=== PATIENT | male | born 1935 | race Caucasian/White ===

== ENCOUNTER 2016-11-28 21:55 | Observation (INO) | payer MEDICARE, BC ==
[~2016-11-28] VITALS: Ht 180.3 cm; Wt 71.9 kg
[~2016-11-28 21:55] MED LIST: ALFU1TAB10 PO; ASPI325T24 PO; CO Q100C9 PO; PRIN20TA2 PO; ROSU40 PO
[2016-11-28 21:59] VITALS: BP 207/91; PULSE 60; RESP 18; RESP 54; TEMP 97.8
[2016-11-28] MEDS ORDERED: ROSU10 PO (22:33)
[2016-11-28] MEDS ORDERED: COQ-50CA2 (22:33)
[2016-11-28] MEDS ORDERED: LEVO.05 PO (22:33)
[2016-11-28] MEDS ORDERED: ASPI81TA11 PO (22:33)
[2016-11-28] MEDS ORDERED: AMLO2.5T PO (22:33)
[2016-11-28] MEDS ORDERED: LISI-515 PO (22:33)
--- NOTE | 2016-11-28 22:41 | RADRPT ---
EXAM DATE/TIME: 11/28/2016 22:35 [facility] COMPARISON: No previous studies available for comparison. INDICATIONS : Chest pain. MEDICAL HISTORY : None. SURGICAL HISTORY : None. ENCOUNTER: Initial ACUITY: 1 day PAIN SCORE: 4/10 LOCATION: Bilateral chest FINDINGS: A single view of the chest demonstrates the lungs to be symmetrically aerated without evidence of mas s, infiltrate or effusion. The cardiomediastinal contours are unremarkable. Osseous structures are intact. CONCLUSION: No acute disease. Jj Painting MD on November 28, 2016 at 22:40 Board Certified Radiologist. This report was verified electronically.
[2016-11-28] MEDS ORDERED: SODIUM CHLORIDE 0.9% FLUSH 10 ML FLUSH IVF PRN (22:45)
--- NOTE | 2016-11-28 22:47 | RADRPT ---
EXAM DATE/TIME: 11/28/2016 22:35 [facility] COMPARISON: No previous studies available for comparison. INDICATIONS : Dizziness. RADIATION DOSE: 63.67 CTDIvol (mGy) MEDICAL HISTORY : Hypertension. SURGICAL HISTORY : None. ENCOUNTER: Initial ACUITY: 1 day PAIN SCALE: 0/10 LOCATION: cranial TECHNIQUE: Multiple contiguous axial images were obtained of the head. Using automated exposure control and adj ustment of the mA and/or kV according to patient size, radiation dose was kept as low as reasonably a chievable to obtain optimal diagnostic quality images. DICOM format image data is available electro nically for review and comparison. FINDINGS: CEREBRUM: The ventricles are normal for age. No evidence of midline shift, mass lesion, hemorrhage or acute in farction. No extra-axial fluid collections are seen. There is a small focal dural calcification martina g the left occipital lobe versus a small meningioma measuring 1 cm.. POSTERIOR FOSSA: The cerebellum and brainstem are intact. The 4th ventricle is midline. The cerebellopontine angle i s unremarkable. EXTRACRANIAL: The visualized portion of the orbits is intact. SKULL: The calvaria is intact. No evidence of skull fracture. CONCLUSION: 1. No acute intracranial pathology. 2. Small focal dural calcification measuring 1 cm versus meningioma along the left occipital lobe are a. Jj Painting MD on November 28, 2016 at 22:44 Board Certified Radiologist. This report was verified electronically.
--- NOTE | 2016-11-28 22:47 | PD ---
HPI Chief Complaint: Dizziness Time Seen by Provider: 22:31 Travel History International Travel<30 days: No Contact w/Intl Traveler<30days: No Traveled to known affect area: No History of Present Illness HPI 81-year-old male presents to the emergency department for complaint of dizziness and not feeling well 2-3 days. Patient states this evening dizziness seemed to be somewhat worse and became concerned that his blood pressure may be too high or that he may have a stroke since symptoms have persisted for so long. Patient does not note any new headache visual disturbance change in mentation facial droop change in speech upper or lower extremity numbness tingling or weakness or gait or balance disturbance; patient also denies any chest pain palpitations shortness of breath sweats nausea vomiting referred neck jaw back shoulder arm or abdominal pain. Patient has noticed urinary frequency. Patient states he jogs or walks daily and did child this morning and over the past 2 mornings. reports that he did seem a little bit unsteady today as far as dizziness so she held his hand while they jogged together. Does have history of CAD with previous cardiac catheterization and angioplasty with annual nuclear stress tests that have been normal and is scheduled to have his annual stress test next month. Patient also has history of hypertension and dyslipidemia but denies history of diabetes. Patient also has history of hypothyroidism. Patient's had no recent fever or chills. Patient reports that he's been under a lot of family related stress which his confirms. Pain 0/10. PFSH Past Medical History Narrative Medical CAD hypertension dyslipidemia hypothyroidism shingles herniorrhaphy cardiac catheterization with angioplasty no tobacco use no alcohol use; nursing notes reviewed Hx Anticoagulant Therapy: Yes (asa) Cardiovascular Problems: Yes High Cholesterol: Yes Diminished Hearing: No Genitourinary: Yes (PROSTRATE ENLARGED) Hypertension: Yes Immunizations Current: Yes ("SHINGLES" SHOT 2010) Past Surgical History Abdominal Surgery: Yes (HERNIA X 2) Appendectomy: Yes Tonsillectomy: Yes Social History Alcohol Use: No Tobacco Use: No Substance Use: No Allergies-Medications (Allergen,Severity, Reaction): Coded Allergies: codeine (Verified Adverse Reaction, Mild, Nausea/Vomiting, 11/28/16) Reported Meds & Prescriptions Reported Meds & Active Scripts Active Reported Lisinopril 20 Mg Tab 20 Mg PO DAILY Coq-10 (Coenzyme Q10 (Ubidecarenone)) 50 Mg Cap 100 Crestor (Rosuvastatin Calcium) 10 Mg Tab 10 Mg PO DAILY Amlodipine (Amlodipine Besylate) 2.5 Mg Tab 2.5 Mg PO DAILY Synthroid (Levothyroxine Sodium) 50 Mcg Tab 50 Mcg PO DAILY Aspirin EC (Aspirin) 81 Mg Tabdr 81 Mg PO DAILY Review of Systems Except as stated in HPI: all other systems reviewed are Neg General / Constitutional: No: Fever, Chills Eyes: No: Visual changes HENT: Positive: Lightheadedness, No: Headaches, Vertigo, Congestion, Neck Stiffness, Neck Pain Cardiovascular: No: Chest Pain or Discomfort, Palpitations, Diaphoresis, Syncope Respiratory: No: Shortness of Breath Gastrointestinal: No: Nausea, Vomiting, Abdominal Pain Genitourinary: Positive: Frequency, No: Flank Pain Musculoskeletal: No: Myalgias, Arthralgias Skin: No Rash Neurologic: Positive: Dizziness, No: Weakness, Syncope, Focal Abnormalities, Coordination Problem, Ataxia, Headache, Change in Mentation, Slurred Speech, Paresthesia, Incontinence, Sensory Disturbance Psychiatric: No: Anxiety, Depression Endocrine: No: Cold Intolerance Hematologic/Lymphatic: No: Easy Bruising Physical Exam Narrative GENERAL: Well-developed well-nourished male in no acute distress no respiratory distress; GCS 15; BP: 207/91 SKIN: Warm and dry. HEAD: Atraumatic. Normocephalic. EYES: Pupils equal and round. No scleral icterus. No injection or drainage. ENT: No nasal bleeding or discharge. Mucous membranes pink and moist. NECK: Trachea midline. No JVD. CARDIOVASCULAR: Regular rate and rhythm. RESPIRATORY: No accessory muscle use. Clear to auscultation. Breath sounds equal bilaterally. GASTROINTESTINAL: Abdomen soft, non-tender, nondistended. Hepatic and splenic margins not palpable. MUSCULOSKELETAL: Extremities without clubbing, cyanosis, or edema. No obvious deformities. NEUROLOGICAL: Awake and alert. No obvious cranial nerve deficits. Motor grossly within normal limits. Five out of 5 muscle strength in the arms and legs. No pronator drift. No limb ataxia. Sensory exam grossly intact. Normal speech. PSYCHIATRIC: Appropriate mood and affect; insight and judgment normal. Data Data Last Documented VS Vital Signs Date Time Temp Pulse Resp B/P (MAP) Pulse Ox O2 Delivery O2 Flow Rate FiO2 11/28/16 23:37 74 16 177/90 (119) 98 Room Air 11/28/16 21:59 97.8 Orders Orders Electrocardiogram (11/28/16 22:31) Complete Blood Count With Diff (11/28/16:31) Comprehensive Metabolic Panel (11/28/16:31) Magnesium (Mg) (11/28/16:31) Ckmb (Isoenzyme) Profile (11/28/16 22:31) Troponin I (11/28/16:31) Urinalysis - C+S If Indicated (11/28/16:31) Chest, Single Ap (11/28/16:31) Ct Brain W/O Iv Contrast(Rout) (11/28/16:31) Blood Glucose (11/28/16:) Ecg Monitoring (11/28/16:) Iv Access Insert/Monitor (11/28/16:31) Oximetry (11/28/16:31) Sodium Chloride 0.9% Flush (Ns Flush) (11/28/16 22:45) Orthostatic Vital Signs (11/28/16:31) Hydralazine Inj (Apresoline Inj) (11/28/16 23:15) CKMB (11/28/16 22:44) CKMB% (11/28/16 22:44) Admit Order (Ed Use Only) (11/28/16 23:44) Labs Laboratory Tests Test 11/28/16 22:44 11/28/16 23:17 White Blood Count 5.9 TH/MM3 Red Blood Count 4.43 MIL/MM3 Hemoglobin 12.7 GM/DL Hematocrit 38.3 % Mean Corpuscular Volume 86.5 FL Mean Corpuscular Hemoglobin 28.7 PG Mean Corpuscular Hemoglobin Concent 33.2 % Red Cell Distribution Width 12.8 % Platelet Count 178 TH/MM3 Mean Platelet Volume 8.9 FL Neutrophils (%) (Auto) 52.1 % Lymphocytes (%) (Auto) 32.9 % Monocytes (%) (Auto) 9.7 % Eosinophils (%) (Auto) 4.5 % Basophils (%) (Auto) 0.8 % Neutrophils # (Auto) 3.0 TH/MM3 Lymphocytes # (Auto) 1.9 TH/MM3 Monocytes # (Auto) 0.6 TH/MM3 Eosinophils # (Auto) 0.3 TH/MM3 Basophils # (Auto) 0.0 TH/MM3 CBC Comment DIFF FINAL Differential Comment Blood Urea Nitrogen 20 MG/DL Creatinine 0.82 MG/DL Random Glucose 127 MG/DL Total Protein 7.1 GM/DL Albumin 3.6 GM/DL Calcium Level 8.5 MG/DL Magnesium Level 2.2 MG/DL Alkaline Phosphatase 47 U/L Aspartate Amino Transf (AST/SGOT) 21 U/L Alanine Aminotransferase (ALT/SGPT) 31 U/L Total Bilirubin 0.4 MG/DL Sodium Level 140 MEQ/L Potassium Level 3.5 MEQ/L Chloride Level 104 MEQ/L Carbon Dioxide Level 28.2 MEQ/L Anion Gap 8 MEQ/L Estimat Glomerular Filtration Rate 90 ML/MIN Total Creatine Kinase 160 U/L Creatine Kinase MB 8.7 NG/ML Troponin I LESS THAN 0.02 NG/ML Urine Color YELLOW Urine Turbidity CLEAR Urine pH 7.0 Urine Specific [place] 1.007 Urine Protein NEG mg/dL Urine Glucose (UA) NEG mg/dL Urine Ketones NEG mg/dL Urine Occult Blood NEG Urine Nitrite NEG Urine Bilirubin NEG Urine Leukocyte Esterase NEG Urine RBC 0-2 /hpf Urine WBC 0-2 /hpf Urine Squamous Epithelial Cells 0-5 /hpf Urine Bacteria NONE /hpf Microscopic Urinalysis Comment CULT NOT INDICATED MDM Medical Decision Making Medical Screen Exam Complete: Yes Emergency Medical Condition: Yes Medical Record Reviewed: Yes (review of medical records indicates patient with sinus bradycardia by EKG since 2010) Interpretation(s) CT brain w/o contrast: CONCLUSION: 1. No acute intracranial pathology. 2. Small focal dural calcification measuring 1 cm versus meningioma along the left occipital lobe area. Jj Painting MD on November 28, 2016 at 22:44 Board Certified Radiologist. This report was verified electronically. Last Impressions Chest X-Ray 11/28/161 Signed Impressions: Service Date/Time: Monday, November 28, 2016 22:35 - CONCLUSION: No acute disease. Jj Painting MD EKG: Sinus bradycardia rate [address] elevation or injury pattern or ectopy noted CBC & BMP Diagram 11/28/16 22:44 Total Protein 7.1, Albumin 3.6, Calcium Level 8.5, Magnesium Level 2.2, Alkaline Phosphatase 47, Aspartate Amino Transf (AST/SGOT) 21, Alanine Aminotransferase (ALT/SGPT) 31, Total Bilirubin 0.4 Troponin I: less than 0.02, not elevated CK: 160, not elevated; MB: 8.7 elevated; MB% 5.4%, elevated Differential Diagnosis Dizziness, near syncope, uncontrolled hypertension, ACS, arrhythmia, anemia, UTI , sepsis, CVA, TIA Narrative Course Patient placed on parts sales manager and pulse oximetry; IV access obtained; specimens collected and sent for resulting; EKG ordered along with orthostatic vital signs and CT brain noncontrast Review of medical records indicates patient has history of sinus bradycardia and underwent cardiac catheterization February 2010 that showed severe single vessel coronary disease that was successfully opened using balloon angioplasty. CBC with automated differential metabolic panel and urinalysis values found to be normal range; EKG sinus bradycardia without acute ST elevation or injury pattern; troponin I less than 0.02, not elevated CK total is 160 however CK-MB is elevated 8.7 with an MB percent elevated at 5.4%. CT brain noncontrast reveals no acute intercranial process however as an incidental finding per reading radiologist area of hyperdensity consistent with calcification versus meningioma identified 1 cm in size recommends outpatient follow-up Patient received hydralazine 10 mg IV with blood pressure 177/90 Patient with recurrent elevation of blood pressure therefore Nitropaste 1 inch to chest wall was applied Patient's case was discussed with his primary care provider Dr. González Martinez who recommends observation admission for ongoing management of blood pressure and for serial cardiac enzymes. Patient informed of recommendation for observation admission and is agreeable to this plan. Patient provider changed to [facility] MD per Dr Martinez Critical Care Narrative Aggregate critical care time was 30 minutes. Time to perform other separately billable procedures was not included in the critical care time. My time did not include minutes spent treating any other patients simultaneously or on activities that did not directly contribute to the patient's treatment. The services I provided to this patient were to treat and/or prevent clinically significant deterioration that could result in: Hypertensive crisis, stroke, ICH , [place], arrhythmia, I provided critical care services requiring my management, as noted below: Chart data review, documentation time, medication orders and management, vital sign assessments/reviewing monitor data, ordering and reviewing lab tests, ordering and interpreting/reviewing x-rays and diagnostic studies, care of the patient and discussion of the patient with the admitting physicians. Physician Communication Physician Communication discussed with Dr Martinez--admit OBS to his service [facility] --> change to [facility] service; discussed with Dr Medel who graciously accepts the patient Diagnosis Primary Impression: Hypertension Qualified Codes: I10 - Essential (primary) hypertension Additional Impressions: Elevated CK-MB level Dizziness Admitting Information Admitting Physician Requests: Observation Michela Carlos MD Nov 28, 2016 22:47
[2016-11-28 22:57] LABS: BASOPHIL % 0.8 % (0.0-2.0); EOSINOPHIL # 0.3 TH/MM3 (0-0.4); EOSINOPHIL % 4.5 % (0.0-4.0); HEMATOCRIT 38.3 % (39.0-51.0); HEMO FLAGS DIFF FINAL; LYMPH % 32.9 % (9.0-44.0); LYMPHOCYTE # 1.9 TH/MM3 (1.0-4.8); MEAN CELL VOLUME 86.5 FL (80.0-100.0); MEAN CORPUSCULAR HEMOGLOBIN 28.7 PG (27.0-34.0); MEAN CORPUSCULAR HGB CONC 33.2 % (32.0-36.0); MONO % 9.7 % (0.0-8.0); NEUT % 52.1 % (16.0-70.0); PLATELET COUNT 178 TH/MM3 (150-450); RED BLOOD COUNT 4.43 MIL/MM3 (4.50-5.90); RED CELL DISTRIBUTION WIDTH 12.8 % (11.6-17.2); WHITE BLOOD COUNT 5.9 TH/MM3 (4.0-11.0)
[2016-11-28 22:58] VITALS: BP 205/104; PULSE 54; RESP 16; O2SAT 97
[2016-11-28 23:05] LABS: CHLORIDE 104 MEQ/L (98-107); POTASSIUM 3.5 MEQ/L (3.5-5.1); SODIUM (NA) 140 MEQ/L (136-145)
[2016-11-28 23:06] VITALS: BP_SYST 197; BP_SYST 214; BP_SYST 252; BP_DIAS 100; BP_DIAS 129; BP_DIAS 95
[2016-11-28 23:10] LABS: ANION GAP 8 MEQ/L (5-15); BICARBONATE 28.2 MEQ/L (21.0-32.0); BLOOD UREA NITROGEN 20 MG/DL (7-18); MAGNESIUM 2.2 MG/DL (1.5-2.5)
[2016-11-28 23:13] LABS: ALT (GPT) 31 U/L (12-78); AST (GOT) 21 U/L (15-37); GLOMERULAR FILTRATION RATE 90 ML/MIN (>89)
[2016-11-28 23:15] LABS: TOTAL BILIRUBIN ADULT 0.4 MG/DL (0.2-1.0)
[2016-11-28] MEDS ORDERED: hydrALAZINE HCL 20 MG/ML VIAL IV PUSH ONE (23:15)
[2016-11-28 23:16] LABS: ALKALINE PHOSPHATASE 47 U/L (45-117); CREATINE KINASE 160 U/L (39-308)
[2016-11-28 23:26] LABS: BLOOD, URINE NEG (NEG); GLUCOSE,URINE NEG (NEG); KETONE, URINE NEG (NEG); NITRITE,URINE NEG (NEG)
[2016-11-28 23:28] LABS: CKMB 8.7 NG/ML (0.5-3.6)
[2016-11-28 23:34] LABS: COMMENT (UR) CULT NOT INDICATED; CULTURE IF INDICATED CULT NOT INDICATED; RBC, URINE 0-2 /hpf (0-3); SQUAMOUS EPITHELIAL CELL URINE 0-5 /hpf (0-5); URINE COLOR YELLOW (YELLW/STRAW); WBC, URINE 0-2 /hpf (0-5)
[2016-11-28 23:37] VITALS: BP 177/90; PULSE 74; RESP 16; O2SAT 98
[2016-11-29] VITALS (11 sets, daily range): BP systolic 100–205; BP diastolic 66–142; PULSE 55–83; RESP 15–18; TEMP 97.2–98; O2SAT 95–99
[2016-11-29] MEDS ORDERED: NITROGLYCERIN 2% OINT 1 GM PACKET TOPICAL ONE
[2016-11-29] MEDS ORDERED: NALOXONE HCL 0.4 MG/ML AMP IV PUSH PRN (00:15)
[2016-11-29] MEDS ORDERED: SODIUM CHLORIDE 0.9% FLUSH 10 ML FLUSH IV FLUSH PRN (00:15)
[2016-11-29] MEDS ORDERED: ENALAPRILAT 2.5 MG/2 ML VIAL IV PUSH PRN (00:30)
[2016-11-29] MEDS ORDERED: hydrALAZINE HCL 20 MG/ML VIAL IV PUSH ONE (01:15)
[2016-11-29 05:06] LABS: CREATINE KINASE 152 U/L (39-308)
[2016-11-29] MEDS: SODIUM CHLORIDE 0.9% FLUSH 10 ML FLUSH IV FLUSH SCH ×2 (08:35→20:50)
[2016-11-29] MEDS ORDERED: LISINOPRIL 20 MG TAB PO SCH ×2 (09:00→21:00)
[2016-11-29] MEDS ORDERED: amLODIPine BESYLATE 5 MG TAB PO SCH (09:00)
--- NOTE | 2016-11-29 11:20 | HHI.HP ---
HPI Service [facility] Primary Care Physician González Martinez MD Admission Diagnosis HTN urgency; dizziness; elevated MB% Diagnoses: (1) Hypertensive emergency Diagnosis: Principal (2) Dizziness Diagnosis: Principal Chief Complaint: Dizziness, elevated blood pressure Travel History International Travel<30 Days: No Contact w/Intl Traveler <30 Da: No Traveled to Known Affected Are: No History of Present Illness Written by Carlos Perea, acting as scribe for Dr. Mckeon on 11/29/16 at 11:11. 81-year-old male with known history of hypertension, hyperlipidemia, coronary artery disease, hypothyroidism who presented to hospital because of dizziness, elevated blood pressure. Patient had been in his normal state of health until he went to his bending roll hand and was told that he had macular degeneration. Since then he has been having increased stress in over the last 2 days he has been experiencing dizziness that he describes as a wobbliness whenever he stands up. He is doing his normal routine wear him and his would jog on a daily basis. However yesterday he had his dizziness sensation felt flush. He checked his blood pressure in was elevated and he thought he may be at risk for having a stroke so his drove him to the hospital for evaluation. Patient had workup done with CT scan of the head which was unremarkable for any acute abnormality, patient's initial blood pressure of 207/ 91. Patient was given Apresoline and Nitropaste with improvement of his blood pressure. At the present time patient blood pressure is 146/78. He is no longer experiencing any dizziness. Patient denied any other symptoms to include no chest pain, nausea, vomiting, room spinning, unilateral weakness, shortness of breath. Review of Systems Constitutional: COMPLAINS OF: Dizziness Except as stated in HPI: all other systems reviewed are Neg Past Family Social History Past Medical History Hypertension Hyperlipidemia Hypothyroidism Coronary artery disease Enlarged prostate History of shingles Past Surgical History Hernia repair Tonsillectomy Cardiac catheterization with angioplasty Reported Medications Reported Meds & Active Scripts Active Reported Lisinopril 20 Mg Tab 20 Mg PO HS Coq-10 (Coenzyme Q10 (Ubidecarenone)) 50 Mg Cap 100 Crestor (Rosuvastatin Calcium) 10 Mg Tab 10 Mg PO DAILY Amlodipine (Amlodipine Besylate) 2.5 Mg Tab 2.5 Mg PO HS Synthroid (Levothyroxine Sodium) 50 Mcg Tab 50 Mcg PO DAILY Aspirin EC (Aspirin) 81 Mg Tabdr 81 Mg PO HS Allergies: Coded Allergies: codeine (Verified Adverse Reaction, Mild, Nausea/Vomiting, 11/28/16) Family History Reviewed is significant for mother in her mid 80s with breast cancer and hypertension, father in his mid 80s with hypertension and stroke Social History Patient denies any tobacco, alcohol or illicit drugs Physical Exam Vital Signs Vital Signs Date Time Temp Pulse Resp B/P (MAP) Pulse Ox O2 Delivery O2 Flow Rate FiO2 11/29/16 07:16 99 Room Air 11/29/16 07:09 98.0 66 18 146/78 (100) 99 Room Air 11/29/16 04:36 74 15 138/72 (94) 96 Room Air 11/29/16 03:18 73 15 154/80 (104) 95 Room Air 11/29/16 01:54 79 15 158/85 (109) 97 Room Air 11/29/16 01:08 83 190/100 (130) 11/29/16 00:36 98.0 73 16 205/107 (139) 99 Room Air 11/29/16 00:18 70 16 195/102 (133) 99 Room Air 11/28/16 23:37 74 16 177/90 (119) 98 Room Air 11/28/16 23:06 62 197/95 (129) 56 214/100 (138) 87 252/129 (170) 11/28/16 22:58 16 97 Room Air 11/28/16 22:58 Room Air 11/28/16 22:58 54 16 205/104 (137) 97 Room Air 11/28/16 21:59 97.8 60 18 207/91 (129) Physical Exam GENERAL: Well-developed, well-nourished, in no acute distress. alert and orientated HEENT: Head is normocephalic without any lesions or masses noted. Facial features are symmetric. Eyes: Pupils equal round reactive to light. Extraocular muscles are intact. Conjunctivae were clear. Oropharyngeal: Pharynx without any erythema edema. Tongue is midline without deviation. Buccal mucosa is moist without any masses or lesions NECK: Supple without any masses. Trachea midline no deviation. No JVD, no bruits are appreciated CARDIAC: Regular rhythm, regular rate. S1/S2 are heard. No murmurs gallops or rubs. LUNGS: Clear to auscultation bilaterally. No wheeze, rhonchi or rales. No use of accessory muscles on inspiration or expiration. ABDOMEN: Soft, nontender. Nondistended. Bowel sounds heard in all 4 quadrants. No organomegaly or masses. Negative rebound, negative guarding EXTREMITIES: No edema, pulses are equal bilaterally. No cyanosis or clubbing NEUROLOGY: Mood and affect appear appropriate. Cranial nerves II through XII grossly intact. Muscle strength 5/5 in upper and lower extremities bilaterally. Deep tendon reflexes are 2+ in upper and lower extremities bilaterally. Laboratory Laboratory Tests Test 11/28/16 22:44 11/28/16 23:17 11/29/16 04:40 11/29/16 10:51 White Blood Count 5.9 Red Blood Count 4.43 Hemoglobin 12.7 Hematocrit 38.3 Mean Corpuscular Volume 86.5 Mean Corpuscular Hemoglobin 28.7 Mean Corpuscular Hemoglobin Concent 33.2 Red Cell Distribution Width 12.8 Platelet Count 178 Mean Platelet Volume 8.9 Neutrophils (%) (Auto) 52.1 Lymphocytes (%) (Auto) 32.9 Monocytes (%) (Auto) 9.7 Eosinophils (%) (Auto) 4.5 Basophils (%) (Auto) 0.8 Neutrophils # (Auto) 3.0 Lymphocytes # (Auto) 1.9 Monocytes # (Auto) 0.6 Eosinophils # (Auto) 0.3 Basophils # (Auto) 0.0 CBC Comment DIFF FINAL Differential Comment Blood Urea Nitrogen 20 Creatinine 0.82 Random Glucose 127 Total Protein 7.1 Albumin 3.6 Calcium Level 8.5 Magnesium Level 2.2 Alkaline Phosphatase 47 Aspartate Amino Transf (AST/SGOT) 21 Alanine Aminotransferase (ALT/SGPT) 31 Total Bilirubin 0.4 Sodium Level 140 Potassium Level 3.5 Chloride Level 104 Carbon Dioxide Level 28.2 Anion Gap 8 Estimat Glomerular Filtration Rate 90 Total Creatine Kinase 160 152 Creatine Kinase MB 8.7 Troponin I LESS THAN 0.02 LESS THAN 0.02 Urine Color YELLOW Urine Turbidity CLEAR Urine pH 7.0 Urine Specific [place] 1.007 Urine Protein NEG Urine Glucose (UA) NEG Urine Ketones NEG Urine Occult Blood NEG Urine Nitrite NEG Urine Bilirubin NEG Urine Leukocyte Esterase NEG Urine RBC 0-2 Urine WBC 0-2 Urine Squamous Epithelial Cells 0-5 Urine Bacteria NONE Microscopic Urinalysis Comment CULT NOT INDICATED Result Diagram: 11/28/16224311/28/162243 Imaging Last Impressions Head CT 11/28/162230 Signed Impressions: Service Date/Time: Monday, November 28, 2016 22:35 - CONCLUSION: 1. No acute intracranial pathology. 2. Small focal dural calcification measuring 1 cm versus meningioma along the left occipital lobe area. Jj Painting MD Chest X-Ray 11/28/162230 Signed Impressions: Service Date/Time: Monday, November 28, 2016 22:35 - CONCLUSION: No acute disease. Jj Painting MD Capkemal VTE Risk Assessment Linh VTE Risk Assessment: Mod/High Risk (score >= 2) Caprini Risk Assessment Model Point Value = 1 Point Value = 2 Point Value = 3 Point Value = 5 Age 41-60 Minor surgery BMI > 25 kg/m2 Swollen legs Varicose veins or History of unexplained or recurrent spontaneous Oral contraceptives or hormone replacement Sepsis (< 1 month) Serious lung disease, including pneumonia (< 1 month) Abnormal pulmonary function Acute myocardial infarction Congestive heart failure (< 1 month) History of inflammatory bowel disease Medical patient at bed rest Age 61-74 Arthroscopic surgery Major open surgery (> 45 min) Laparoscopic surgery (> 45 min) Malignancy Confined to bed (> 72 hours) Immobilizing plaster cast Central venous access Age >= 75 History of VTE Family history of VTE Factor V Leiden Prothrombin [id number] Lupus anticoagulant Anticardiolipin antibodies Elevated serum homocysteine Heparin-induced thrombocytopenia Other congenital or acquired thrombophilia Stroke (< 1 month) Elective arthroplasty Hip, pelvis, or leg fracture Acute spinal cord injury (< 1 month) Prophylaxis Regimen Total Risk Factor Score Risk Level Prophylaxis Regimen 0-1 Low Early ambulation 2 Moderate Order ONE of the following: *Sequential Compression Device (SCD) *Heparin 5000 units SQ BID 3-4 Higher Order ONE of the following medications: *Heparin 5000 units SQ TID *Enoxaparin/Lovenox 40 mg SQ daily (WT < 150 kg, CrCl > 30 mL/min) *Enoxaparin/Lovenox 30 mg SQ daily (WT < 150 kg, CrCl > 10-29 mL/min) *Enoxaparin/Lovenox 30 mg SQ BID (WT < 150 kg, CrCl > 30 mL/min) AND/OR *Sequential Compression Device (SCD) 5 or more Highest Order ONE of the following medications: *Heparin 5000 units SQ TID (Preferred with Epidurals) *Enoxaparin/Lovenox 40 mg SQ daily (WT < 150 kg, CrCl > 30 mL/min) *Enoxaparin/Lovenox 30 mg SQ daily (WT < 150 kg, CrCl > 10-29 mL/min) *Enoxaparin/Lovenox 30 mg SQ BID (WT < 150 kg, CrCl > 30 mL/min) AND *Sequential Compression Device (SCD) Assessment and Plan Assessment and Plan Hypertensive emergency with lightheadedness Blood pressure improved at this time with use of Apresoline, Nitropaste Resume patient's home medications lisinopril, amlodipine CT scan does not indicate any acute abnormality there is a small focal dural calcification along the left occipital lobe versus small meningioma measuring 1 cm Orthostatic vitals do indicate orthostasis, DEBBIE hose replaced with reversal of orthostasis, however increased blood pressure Discuss with patient's primary doctor Dr. Martinez, he indicates that the patient blood pressure gets very labile when he is under stress. This is under stress about his macular degeneration he gave recommendations for Xanax 0.25 mg twice daily Increase amlodipine to 5 mg daily Continue lisinopril 20 mg daily Normal saline bolus 500 cc Reevaluate orthostasis in the a.m. and monitor blood pressure. If stable may discharge tomorrow morning Hyperlipidemia, coronary artery disease Continue home medications Cardiac enzymes do not indicate any acute coronary event Hypothyroidism Check TSH Resume home medications DVT prevention Sequential compression devices This note was transcribed by anamaria Perea. I, Jimmy Mckeon, personally performed the history, physical exam, and medical decision making; and confirmed the accuracy of information in the transcribed note. Authenticated by Jimmy Mckeon on 11/29/16 @1800. All orders entered by Andrae Perea were at my discretion. Carlos Perea Nov 29, 2016 11:20 Jimmy Mckeon MD Dec 04, 2016 08:16
--- NOTE | 2016-11-29 12:17 | EKG ---
Date Performed: 11/28/2016 Time Performed: 22:53:59 PTAGE: 81 years EKG: SINUS BRADYCARDIA PROBABLE SEPTAL MYOCARDIAL INFARCTION ABNORMAL ECG Compared to prior trac ing no significant change PREVIOUS TRACING : 02/24/2010 06.21 DOCTOR: Mirta Flores Interpretating Date/Time 11/29/2016 12:13:53
--- NOTE | 2016-11-29 12:18 | EKG ---
Date Performed: 11/29/2016 Time Performed: 04:24:17 PTAGE: 81 years EKG: Sinus rhythm WITH SINUS ARRHYTHMIA POSSIBLE LEFT ATRIAL ENLARGEMENT BORDERLINE LEFT AXIS DEVIATION INCOMPLETE RIG HT BUNDLE BRANCH BLOCK BORDERLINE ECG Compared to prior tracing no significant change PREVIOUS TRACING : 11/28/2016 22.53 DOCTOR: Mirta Flores Interpretating Date/Time 11/29/2016 12:14:02
--- NOTE | 2016-11-29 13:16 | EKG ---
Date Performed: 11/29/2016 Time Performed: 10:42:54 PTAGE: 81 years EKG: SINUS BRADYCARDIA WITH PAC SEPTAL MYOCARDIAL INFARCTION ABNORMAL ECG PREVIOUS TRACING : 11/29/2016 04.24 No significant change from previous tracing noted. DOCTOR: Eladio Dickens Interpretating Date/Time 11/29/2016 13:14:05
[2016-11-29] MEDS ORDERED: SODIUM CHLORID 0.9% 500 ML INJ 500 ML IV ONE (15:45)
[2016-11-29] MEDS ORDERED: amLODIPine BESYLATE 5 MG TAB PO ONE (16:00)
[2016-11-29] MEDS: ALPRAZolam 0.25 MG TAB PO SCH ×2 (17:23→20:51)
[2016-11-29] MEDS ORDERED: NITROGLYCERIN 0.3 MG SL 100 TABS/BTL SL PRN (20:45)
[2016-11-30] VITALS: BP 161/98; PULSE 66; RESP 16; TEMP 97.5; O2SAT 95
[2016-11-30 04:00] VITALS: BP 137/79; PULSE 64; RESP 16; TEMP 96.1; O2SAT 95
[2016-11-30 06:34] LABS: AUTOMATED NEUTROPHIL # 4.6 TH/MM3 (1.8-7.7); BASOPHIL % 0.4 % (0.0-2.0); EOSINOPHIL # 0.2 TH/MM3 (0-0.4); EOSINOPHIL % 2.4 % (0.0-4.0); HEMATOCRIT 41.7 % (39.0-51.0); HEMO FLAGS DIFF FINAL; LYMPH % 29.7 % (9.0-44.0); LYMPHOCYTE # 2.3 TH/MM3 (1.0-4.8); MEAN CELL VOLUME 88.4 FL (80.0-100.0); MEAN CORPUSCULAR HEMOGLOBIN 29.3 PG (27.0-34.0); MEAN CORPUSCULAR HGB CONC 33.1 % (32.0-36.0); MONO % 7.9 % (0.0-8.0); NEUT % 59.6 % (16.0-70.0); PLATELET COUNT 184 TH/MM3 (150-450); RED BLOOD COUNT 4.71 MIL/MM3 (4.50-5.90); RED CELL DISTRIBUTION WIDTH 13.1 % (11.6-17.2); WHITE BLOOD COUNT 7.7 TH/MM3 (4.0-11.0)
[2016-11-30 06:44] LABS: POTASSIUM 3.5 MEQ/L (3.5-5.1)
[2016-11-30 06:52] LABS: BICARBONATE 26.5 MEQ/L (21.0-32.0)
--- NOTE | 2016-11-30 07:04 | EKG ---
Date Performed: 11/29/2016 Time Performed: 21:23:17 PTAGE: 81 years EKG: Sinus rhythm WITH SINUS ARRHYTHMIA BORDERLINE LEFT AXIS DEVIATION BORDERLINE ECG PREVIOUS TRACING : 11/29/2016 10.42 Compared to previous tracing, axis has shifted leftward. DOCTOR: Eladio Dickens Interpretating Date/Time 11/30/2016 07:03:41
[2016-11-30 08:00] VITALS: BP_SYST 123; BP_SYST 149; BP_SYST 163; BP_DIAS 71; BP_DIAS 78; BP_DIAS 96; PULSE 63; RESP 18; TEMP 96; O2SAT 100; O2SAT 99
[2016-11-30] MEDS ORDERED: amLODIPine BESYLATE 5 MG TAB PO SCH ×2 (09:00→21:00)
[2016-11-30] MEDS: SODIUM CHLORIDE 0.9% FLUSH 10 ML FLUSH IV FLUSH SCH (09:15)
[2016-11-30] MEDS: ALPRAZolam 0.25 MG TAB PO SCH (09:15)
[2016-11-30] MEDS ORDERED: ALPR.25 PO (10:23)
[2016-11-30] MEDS ORDERED: AMLO5 PO (10:23)
--- NOTE | 2016-11-30 10:26 | HHI.DCPOC ---
Discharge Care Plan Diagnosis: (1) Orthostatic lightheadedness (2) Dizziness (3) Hypertensive emergency (4) Anxiety (5) anxiety Goals to Promote Your Health * To prevent worsening of your condition and complications * To maintain your health at the optimal level Directions to Meet Your Goals Take your medications as prescribed Follow your dietary instruction Follow activity as directed Keep your appointments as scheduled Take your immunizations and boosters as scheduled If your symptoms worsen call your PCP, if no PCP go to Urgent Care Center or Emergency Room Smoking is Dangerous to Your Health. Avoid second hand smoke Call the 24-hour hour crisis hotline for domestic abuse at Jimmy Mckeon MD Nov 30, 2016 10:26
--- NOTE | 2016-11-30 10:29 | HHI.DS ---
Discharge Summary Admission Date Nov 28, 2016 at 23:46 Discharge Date: Nov 30, 2016 Admitting Diagnosis HTN emergency; dizziness; elevated MB% (1) Hypertensive emergency ICD Code: I16.1 - Hypertensive emergency Diagnosis: Principal (2) Dizziness ICD Code: R42 - Dizziness and giddiness Diagnosis: Principal Status: Acute Procedures none Brief History - From Admission Written by Carlos Perea, acting as scribe for Dr. Mckeon on 11/29/16 at 11:11. 81-year-old male with known history of hypertension, hyperlipidemia, coronary artery disease, hypothyroidism who presented to hospital because of dizziness, elevated blood pressure. Patient had been in his normal state of health until he went to his senior physical therapist and was told that he had macular degeneration. Since then he has been having increased stress in over the last 2 days he has been experiencing dizziness that he describes as a wobbliness whenever he stands up. He is doing his normal routine wear him and his would jog on a daily basis. However yesterday he had his dizziness sensation felt flush. He checked his blood pressure in was elevated and he thought he may be at risk for having a stroke so his drove him to the hospital for evaluation. Patient had workup done with CT scan of the head which was unremarkable for any acute abnormality, patient's initial blood pressure of 207/ 91. Patient was given Apresoline and Nitropaste with improvement of his blood pressure. At the present time patient blood pressure is 146/78. He is no longer experiencing any dizziness. Patient denied any other symptoms to include no chest pain, nausea, vomiting, room spinning, unilateral weakness, shortness of breath. CBC/BMP: 11/30/16 0445 11/30/16 0445 Significant Findings Laboratory Tests Test 11/28/16 22:44 11/28/16 23:17 11/29/16 04:40 11/29/16 10:51 Red Blood Count 4.43 MIL/MM3 (4.50-5.90) Hemoglobin 12.7 GM/DL (13.0-17.0) Hematocrit 38.3 % (39.0-51.0) Monocytes (%) (Auto) 9.7 % (0.0-8.0) Eosinophils (%) (Auto) 4.5 % (0.0-4.0) Blood Urea Nitrogen 20 MG/DL (7-18) Random Glucose 127 MG/DL (74-106) Creatine Kinase MB 8.7 NG/ML (0.5-3.6) Troponin I LESS THAN 0.02 NG/ML LESS THAN 0.02 NG/ML Test 11/30/16 04:45 Creatinine 0.58 MG/DL (0.60-1.30) Calcium Level 8.3 MG/DL (8.5-10.1) PE at Discharge No acute distress Unlabored breathing, no slurred speech, no facial droop Hospital Course Patient was admitted and started on antihypertensive medications intravenously. Dr. Martinez was contacted, and per his recommendations the patient received normal saline bolus and started on Xanax. Patient's blood pressure had eventually stabilized and his orthostatic hypotension significantly improved, and his symptoms had resolved. Patient had met maximum benefit from hospitalization and is clinically stable for discharge. Pt Condition on Discharge: Stable Discharge Disposition: Discharge Home Discharge Time: <= 30 minutes Discharge Instructions DIET: Follow Instructions for: As Tolerated, No Restrictions Activities you can perform: Weight Bearing as Stephenie Follow up Referrals: PCP Follow-up - 10 Days New Medications: Alprazolam (Xanax) 0.25 Mg Tab 0.25 MG PO Q12HR for anxiety, #60 TAB Amlodipine (Norvasc) 5 Mg Tab 5 MG PO DAILY for blood pressure, #30 TAB Continued Medications: Aspirin DR (Aspirin EC) 81 Mg Tabdr 81 MG PO HS, TAB 0 Refills Coenzyme Q10 (Ubidecarenone) (Coq-10) 50 Mg Cap 100 Levothyroxine (Synthroid) 50 Mcg Tab 50 MCG PO DAILY for Thyroid, #30 TAB 0 Refills Lisinopril (Lisinopril) 20 Mg Tab 20 MG PO HS, #30 TAB 0 Refills Rosuvastatin (Crestor) 10 Mg Tab 10 MG PO DAILY for Cholesterol Management, #30 TAB 0 Refills Discontinued Medications: Amlodipine (Amlodipine) 2.5 Mg Tab 2.5 MG PO HS for Blood Pressure Management, #30 TAB 0 Refills Jimmy Mckeon MD Nov 30, 2016 10:29
== END 2016-11-30 12:39 | disposition home or self-care (01) ==
LOC: PHED 21:55 → PHEDA 23:46 → PHEDH 11-29 03:46 → PH3B 11-29 13:14
PROVIDERS: ADMIT Hospitalist; ATTEND Hospitalist
DX: I16.1 Hypertensive emergency (principal); R42 Dizziness and giddiness; R00.1 Bradycardia, unspecified; R07.9 Chest pain, unspecified; R94.31 Abnormal electrocardiogram [ECG] [EKG]; I45.10 Unspecified right bundle-branch block; I49.8 Other specified cardiac arrhythmias; I25.10 Atherosclerotic heart disease of native coronary artery without angina pectoris; I10 Essential (primary) hypertension; E78.00 Pure hypercholesterolemia, unspecified; E03.9 Hypothyroidism, unspecified; H35.30 Unspecified macular degeneration; F41.9 Anxiety disorder, unspecified; N40.1 Benign prostatic hyperplasia with lower urinary tract symptoms; R35.0 Frequency of micturition; Z79.899 Other long term (current) drug therapy; Z79.82 Long term (current) use of aspirin
CPT/HCPCS: 70450; 71010; 80048; 80053; 81001; 82550; 82552; 83735; 84484; 85025; 93005; 96361; 96374; 96375; 96376; 99291; G0378; J0360; J7040